=== PATIENT | female | born 1990 ===

== ENCOUNTER 2019-01-30 08:15 | Inpatient (IN) | payer OTHER ==
[~2019-01-30] VITALS: Ht 157.5 cm; Wt 72.6 kg
[2019-02-05] MEDS ORDERED: IRO-PLEX LIQUI120 ML (08:00)
[2019-02-05] MEDS ORDERED: IRON236 MG (08:00)
== END 2019-02-07 10:35 | disposition home or self-care (01) | DRG 743 ==
LOC: O/R 08:15 → OB/GYN 02-05 04:45 → O/R 02-05 04:45 → OB/GYN 02-05 07:00
PROVIDERS: ADMIT Obstetrics & Gynecology
PROC: 0UT00ZZ Resection of Right Ovary, Open Approach (ICD-10-PCS; 2019-02-05)
PROC: 0DN80ZZ Release Small Intestine, Open Approach (ICD-10-PCS; 2019-02-05)
PROC: 0UT50ZZ Resection of Right Fallopian Tube, Open Approach (ICD-10-PCS; principal; 2019-02-05 07:00)
DX: N83.11 Corpus luteum cyst of right ovary (principal); K66.0 Peritoneal adhesions (postprocedural) (postinfection)

== ENCOUNTER 2019-10-27 07:45 | Inpatient (IN) | payer OTHER ==
[~2019-10-27] VITALS: Ht 157.5 cm; Wt 72.6 kg
[~2019-10-27 07:45] MED LIST: IRO-PLEX LIQUI120 ML; IRON236 MG
== END 2019-10-31 09:50 | disposition home or self-care (01) | DRG 743 ==
LOC: O/R 10-29 04:55 → OB/GYN 10-29 11:35
PROVIDERS: ADMIT Obstetrics & Gynecology; ATTEND Obstetrics & Gynecology
PROC: 0UB60ZZ Excision of Left Fallopian Tube, Open Approach (ICD-10-PCS; 2019-10-29)
PROC: 0UT10ZZ Resection of Left Ovary, Open Approach (ICD-10-PCS; 2019-10-29)
PROC: 0UT90ZZ Resection of Uterus, Open Approach (ICD-10-PCS; principal; 2019-10-29 10:15)
DX: N83.02 Follicular cyst of left ovary (principal); N72 Inflammatory disease of cervix uteri; D28.2 Benign neoplasm of uterine tubes and ligaments